=== PATIENT | male | born 1970 | race Caucasian/White ===

== ENCOUNTER → 2016-05-31 | Outpatient (CLI) | payer BC | END | disposition home or self-care (01) | LOC: GMA 14:37 | PROVIDERS: ATTEND Nurse Practitioner Acute Care | DX: R53.83 Other fatigue (principal) ==

== ENCOUNTER → 2018-05-15 | Outpatient (CLI) | payer BC | LOC: GMAL 10:58 | PROVIDERS: ATTEND Family Medicine | DX: Z00.00 Encounter for general adult medical examination without abnormal findings (principal) ==

== ENCOUNTER → 2018-09-18 | Outpatient (CLI) | payer BC ==
--- NOTE | 2018-09-18 08:45 | US ---
EXAM DESCRIPTION: Liver ultrasound right upper quadrant CLINICAL HISTORY: ELEVATED LFT COMPARISON: None Available. TECHNIQUE: Right upper quadrant ultrasound was performed. FINDINGS: Pancreas: Visualized portions of the pancreas are unremarkable. Bowel gas obscures some areas. Aorta/inferior vena cava: No aortic aneurysm. Normal inferior vena cava. Liver: The liver is homogeneous in texture with increased echogenicity with sparing near the gallbladder consistent with fatty infiltration.. No focal liver lesion or intrahepatic bile duct dilatation. No liver surface irregularity. Normal appearance of the portal vein and hepatic veins. Gallbladder: Echogenic foci associated with the gallbladder wall are consistent with small cholesterol polyps in the 2 to 5 mm size range. No intraluminal shadowing stones or wall thickening. Common bile duct: Normal caliber measuring 4.0 mm. Right kidney: Renal length is 12.1 cm. Normal cortical echogenicity. Cortical thickness is normal. No hydronephrosis is seen. No renal mass or shadowing calculus. IMPRESSION: Gallbladder polyps. Hyperechoic liver consistent with diffuse hepatic steatosis. Electronically signed by: Prince Esteban MD 09/18/2018 8:42 AM CDT
== END ==
LOC: US 07:57
PROVIDERS: ATTEND Family Medicine
DX: R94.5 Abnormal results of liver function studies (principal); K82.4 Cholesterolosis of gallbladder

== ENCOUNTER → 2018-11-06 | Outpatient (CLI) | payer BC | LOC: GMAL 10:52 | PROVIDERS: ATTEND Family Medicine | DX: E55.9 Vitamin D deficiency, unspecified (principal); E78.49 Other hyperlipidemia; R94.5 Abnormal results of liver function studies ==